=== PATIENT | female | born 1975 | race Caucasian/White ===

== ENCOUNTER 2025-02-01 19:21 | Emergency (ER) | payer BC ==
[~2025-02-01] VITALS: Ht 172.7 cm; Wt 84.4 kg
[2025-02-01] MEDS ORDERED: CLONIDINE HCL 0.2 MG TABLET ONE (22:03)
[2025-02-01] MEDS: CLONIDINE HCL 0.2 MG TABLET PO ONE (22:07)
[2025-02-01 22:10] VITALS: BP 150/100; TEMP 98; O2SAT 100
[2025-02-01] MEDS ORDERED: AMLO-212 PO (22:19)
== END 2025-02-01 22:10 | disposition home or self-care (01) ==
LOC: ER 20:40
DX: I10 Essential (primary) hypertension (principal); R00.2 Palpitations; Z79.899 Other long term (current) drug therapy
CPT/HCPCS: A4606; A4663